=== PATIENT | male | born 1985 | race Caucasian/White ===

== ENCOUNTER 2017-01-02 21:42 | Emergency (ER) | payer MEDICAID ==
[2017-01-03 00:18] VITALS: BP 130/82
== END 2017-01-03 00:18 | disposition home or self-care (01) ==
LOC: ED 21:42
DX: S66.811A Strain of other specified muscles, fascia and tendons at wrist and hand level, right hand, initial encounter (principal); R03.0 Elevated blood-pressure reading, without diagnosis of hypertension; W19.XXXA Unspecified fall, initial encounter; Y93.89 Activity, other specified; Y92.89 Other specified places as the place of occurrence of the external cause; Y99.8 Other external cause status